=== PATIENT | male | born 1990 | race Caucasian/White ===

== ENCOUNTER 2022-11-06 03:45 | Emergency (ER) | payer OTHER ==
[~2022-11-06] VITALS: Ht 193 cm; Wt 99.8 kg
== END 2022-11-06 04:38 | disposition home or self-care (01) ==
LOC: ED 03:45
DX: S05.02XA Injury of conjunctiva and corneal abrasion without foreign body, left eye, initial encounter (principal); W22.8XXA Striking against or struck by other objects, initial encounter
CPT/HCPCS: 99283